=== PATIENT | female | born 1955 ===

== ENCOUNTER 2017-10-27 14:44 | Emergency (ER) | payer OTHER ==
[~2017-10-27] VITALS: Ht 157.5 cm; Wt 104.3 kg
[2017-10-27] MEDS ORDERED: COZAAR100 MG (15:02)
[2017-10-27] MEDS ORDERED: HYDROCHLOROTHIA25 MG (15:03)
[2017-10-27] MEDS ORDERED: NORVASC5 MG (15:03)
== END 2017-10-27 20:41 | disposition home or self-care (01) ==
LOC: ER 14:44
DX: M54.5 Low back pain (principal)

== ENCOUNTER 2021-06-04 10:30 | Inpatient (IN) | payer OTHER ==
[~2021-06-04] VITALS: Ht 152.4 cm; Wt 104.3 kg
[~2021-06-04 10:30] MED LIST: COZAAR100 MG; HYDROCHLOROTHIA25 MG; NORVASC5 MG
[2021-06-04] MEDS ORDERED: GABAPENTIN800 M1 PO (14:04)
[2021-06-04] MEDS ORDERED: ULTRAM50 MG PO (14:04)
[2021-06-04] MEDS ORDERED: ATACAND32 MG PO (14:04)
[2021-06-04] MEDS ORDERED: SYNTHROID50 MCG PO (14:05)
[2021-06-04] MEDS ORDERED: PRAVASTATIN SOD40 MG PO (14:05)
[2021-06-04] MEDS ORDERED: BONIVA150 MG PO (14:06)
[2021-06-04] MEDS ORDERED: ZOLOFT50 MG PO (14:06)
[2021-06-10] MEDS ORDERED: COLACE100 MG PO (12:26)
[2021-06-10] MEDS ORDERED: PERCOCET 5-3251 EACH PO (12:28)
[2021-06-10] MEDS ORDERED: MEDROLPACK PO (12:28)
[2021-06-10] MEDS ORDERED: AMOX-CLAV 875-1 EACH PO (12:28)
[2021-06-10] MEDS ORDERED: NEURONTIN800 MG PO (12:28)
== END 2021-06-11 16:40 | disposition home or self-care (01) | DRG 455 ==
LOC: O/R 06-10 07:34 → SURH 06-10 10:30 → O/R 06-10 19:45 → PED 06-12 16:59 → O/R 06-12 16:59 → PED 06-13 08:29 → O/R 06-13 08:29
PROVIDERS: ADMIT Orthopaedic Surgery Orthopaedic Surgery of the Spine; ATTEND Orthopaedic Surgery Orthopaedic Surgery of the Spine
PROC: 0SG0071 Fusion of Lumbar Vertebral Joint with Autologous Tissue Substitute, Posterior Approach, Posterior Column, Open Approach (ICD-10-PCS; 2021-06-10)
PROC: 01NB0ZZ Release Lumbar Nerve, Open Approach (ICD-10-PCS; 2021-06-10)
PROC: 0QB30ZZ Excision of Left Pelvic Bone, Open Approach (ICD-10-PCS; 2021-06-10)
PROC: 0SP004Z Removal of Internal Fixation Device from Lumbar Vertebral Joint, Open Approach (ICD-10-PCS; 2021-06-10)
PROC: 07DR0ZZ Extraction of Iliac Bone Marrow, Open Approach (ICD-10-PCS; 2021-06-10)
PROC: 0SG30AJ Fusion of Lumbosacral Joint with Interbody Fusion Device, Posterior Approach, Anterior Column, Open Approach (ICD-10-PCS; principal; 2021-06-10 18:15)
DX: M51.17 Intervertebral disc disorders with radiculopathy, lumbosacral region (principal); M51.37 Other intervertebral disc degeneration, lumbosacral region; I10 Essential (primary) hypertension; E03.8 Other specified hypothyroidism

== ENCOUNTER 2024-10-12 06:21 | Day surgery (SDC) | payer OTHER ==
[~2024-10-12 06:21] MED LIST changes: +AMOX-CLAV 875-1 EACH PO; +ATACAND32 MG PO; +BONIVA150 MG PO; +COLACE100 MG PO; +GABAPENTIN800 M1 PO; +MEDROLPACK PO; +NEURONTIN800 MG PO; +PERCOCET 5-3251 EACH PO; +PRAVASTATIN SOD40 MG PO; +SYNTHROID50 MCG PO; +ULTRAM50 MG PO; +ZOLOFT50 MG PO
[2024-10-12] MEDS ORDERED: NALOXONE HCL 0.4 MG/ML AMPUL IV STA (09:13)
[2024-10-12] MEDS ORDERED: DIPHENHYDRAMINE HCL 50 MG/ML VIAL 1ML IV ONE (09:15)
[2024-10-12] MEDS ORDERED: MIDAZOLAM HCL 2 MG/2 ML VIAL IV ONE (09:15)
[2024-10-12] MEDS ORDERED: fentaNYL CITRATE 50 MCG/ML AMPUL IV PUSH ONE (09:15)
== END 2024-10-12 10:50 | disposition home or self-care (01) ==
LOC: AMB-ENDOS 06:21
PROVIDERS: ATTEND Internal Medicine
DX: R13.19 Other dysphagia (principal); K21.9 Gastro-esophageal reflux disease without esophagitis; Z91.041 Radiographic dye allergy status; K29.00 Acute gastritis without bleeding; R63.4 Abnormal weight loss